=== PATIENT | male | born 1995 ===

== ENCOUNTER 2017-06-30 07:49 | Day surgery (SDC) | payer OTHER ==
[2017-06-30 08:19] VITALS: BMI 44.1
[2017-06-30 10:00] LABS: HEMOGLOBIN 14.9 g/dL (12.0-18.0); MEAN CELL VOLUME 87.3 fl (80.0-94.0); MEAN CORPUSCULAR HEMOGLOBIN 28.7 pg (27.0-31.0); MEAN CORPUSCULAR HGB CONC 32.9 g/dL (33.0-37.0); RBC 5.19 Mil/uL (4.40-5.90); RED CELL DISTRIBUTION WIDTH 14.1 % (11.5-14.5); WHITE BLOOD COUNT 9.2 K/uL (4.8-10.8)
[2017-06-30 10:17] LABS: INR 1.1 (0.9-1.2); PARTIAL THROMBOPLASTIN TIME 28.6 Seconds (25.6-37.1)
[2017-06-30] MEDS ORDERED: Midazolam 2 MG/2 ML VIAL ONE (10:59)
[2017-06-30] MEDS ORDERED: Lactated Ringer's 1,000 ML IV ONE (12:20)
--- NOTE | 2017-06-30 12:25 | CP.SDSHP ---
Same Day Surgery H & P - History Proposed Procedure: US guided biopsy of right neck mass Pre-Op Diagnosis: right neck mass - Allergies Allergies: Allergies keppra Adverse Reaction (Uncoded 02/09/16 22:57) HEADACHE depression, mood swings - Physical Exam Vital Signs: Vital Signs 06/30/17 06/30/17 08:27 08:30 Temperature 97.8 F Pulse Rate 66 78 Respiratory 20 Rate Blood Pressure 132/68 O2 Sat by Pulse 98 Oximetry - Impression Impression: 21 yo male w/ right neck mass, possibly cystic; plan US guided biopsy/aspiration - Date & Time Date: 06/30/17 Time: 12:00 Short Stay Discharge - Short Stay Discharge Admitting Diagnosis/Reason for Visit: R22.1 Disposition: HOME/ ROUTINE Referrals: Kam DOBBS,Chin Welch MD [Primary Care Provider] -
--- NOTE | 2017-06-30 12:26 | PCM.SURG1 ---
Surgeon's Initial Post Op Note - Surgeon's Notes Surgeon: Elvin Degroot MD Treasurer: None Type of Anesthesia: MAC, Local Pre-Operative Diagnosis: right neck mass Operative Findings: large cystic right neck mass Post-Operative Diagnosis: same Operation Performed: US guided right neck mass aspiration Specimen/Specimens Removed: 30 cc serous fluid aspirated. sample submitted. no core taken Estimated Blood Loss: EBL {In ML}: 0 Date of Surgery/Procedure: 06/30/17 Time of Surgery/Procedure: 12:15
[2017-06-30 15:13] VITALS: BP 140/83; PULSE 73; RESP 18; TEMP 98.5; O2SAT 96
--- NOTE | 2017-07-01 10:11 | US ---
PROCEDURE: ULTRASOUND-GUIDED RIGHT NECK MASS ASPIRATION CLINICAL HISTORY: 21-year-old male with right neck mass seen on outside ultrasound is referred to Interventional Radiology for percutaneous image-guided core needle biopsy. COMPARISON: Recent outside ultrasound of the thyroid/neck. PROCEDURE: 1. Focused ultrasound of the right neck. 2. Ultrasound-guided aspiration of the right neck mass. PRE-PROCEDURE FINDINGS: 1. Large hypoechoic right neck mass with increased through transmission. POST-PROCEDURE FINDINGS: 1. No evidence of post-procedural complication. INTERVENTIONAL RADIOLOGIST: Elvin Degroot M.D. (the attending was present for the entire procedure) ANESTHESIA: Provided by the attending anesthesiologist. Sedation was supervised by the anesthesiology attending with the presence of independent radiology nursing monitoring. Physiological data monitoring was performed throughout the entire procedure. The patient's blood pressure, EKG and pulse oximetry were recorded. The patient tolerated the procedure and sedation without untoward reactions. The intra-procedural sedation time was 15 minutes. MEDICATIONS: Lidocaine 1% for local subcutaneous analgesia. See anesthesia record for intravenous sedation medication. COMPLICATIONS: None. PROCEDURE DESCRIPTION AND FINDINGS: The risks, benefits, alternatives and possible complications of the procedure were fully discussed; all questions were answered and informed consent was obtained. The patient was brought into the interventional suite and a pre-procedure 'time-out' was performed. The patient was placed on the ultrasound table in the supine position. The lesion was localized under ultrasound-guidance and a destin was made on the skin site overlying the lesion. The right neck was prepped and draped in the usual sterile fashion. Maximum sterile barrier precautions were maintained throughout the entire procedure. Preliminary focused ultrasound images of the right neck again demonstrate large hypoechoic mass with increased through transmission. Following subcutaneous infiltration of lidocaine 1% for local analgesia, under ultrasound-guidance, a 19-gauge trocar needle was advanced into the right neck mass. The ultrasound images were permanently recorded and submitted to the PACS. The inner stylet was carefully removed with prompt return of serous fluid. Approximately 30 cc fluid was aspirated and the structure appeared to be decompressed on postprocedural imaging. The fluid was submitted to the laboratory for analysis. The sterile adhesive bandage was applied over the puncture site. The patient tolerated the procedure well without immediate post-procedure complications and was transferred to the interventional radiology recovery area in stable condition. IMPRESSION: Successful ultrasound-guided aspiration of the right neck CYSTIC mass. Fluid submitted to the laboratory for analysis. Core biopsy was not obtained.
== END 2017-06-30 14:55 | disposition home or self-care (01) ==
LOC: H.OPSURG 07:49
PROVIDERS: ATTEND Specialist
DX: R22.1 Localized swelling, mass and lump, neck (principal); G40.909 Epilepsy, unspecified, not intractable, without status epilepticus; E66.01 Morbid (severe) obesity due to excess calories
CPT/HCPCS: 10022; 36415; 85027; 85610; 85730; 87070; 88173; J2250; J3010; J7120